=== PATIENT | male | born 1990 | race Two or more races ===

== ENCOUNTER → 2020-08-02 10:10 | Outpatient (BNVA) | payer OTHER, SELFPAY | PROVIDERS: PCP Physician Assistant; Visit Provider Internal Medicine | DX: F11.20 Opioid dependence, uncomplicated (principal) | CPT/HCPCS: 80305; 99211 ==

== ENCOUNTER 2020-08-10 15:10 | Outpatient (REF) | payer OTHER, SELFPAY ==
[2020-08-10 17:35] LABS: Free T4 (Free Thyroxine) 0.73 ng/dL (0.71-1.85); Thyroid Stimulating Hormone < 0.01 mIU/mL (0.32-4.0)
[2020-08-11 19:17] LABS: Triiodothyronine T3 Total 72 ng/dL (76-181)
== END 2020-08-10 15:11 | disposition home or self-care (01) ==
LOC: HO.LAB 15:10
PROVIDERS: Absent Provider Internal Medicine; PCP Physician Assistant; Visit Provider Internal Medicine
DX: E05.00 Thyrotoxicosis with diffuse goiter without thyrotoxic crisis or storm (principal); F11.99 Opioid use, unspecified with unspecified opioid-induced disorder
CPT/HCPCS: 80305; 84439; 84443; 84480; 99211

== ENCOUNTER → 2020-08-17 15:34 | Outpatient (BNVA) | payer OTHER, SELFPAY | PROVIDERS: Visit Provider Internal Medicine | DX: E05.00 Thyrotoxicosis with diffuse goiter without thyrotoxic crisis or storm (principal); E55.9 Vitamin D deficiency, unspecified | CPT/HCPCS: 80305; 99211 ==

== ENCOUNTER → 2020-08-24 10:49 | Outpatient (BNVA) | payer OTHER, SELFPAY | PROVIDERS: Visit Provider Internal Medicine | DX: F11.99 Opioid use, unspecified with unspecified opioid-induced disorder (principal) | CPT/HCPCS: 80305; 99211 ==

== ENCOUNTER → 2020-08-31 15:06 | Outpatient (BNVA) | payer OTHER, SELFPAY | PROVIDERS: Visit Provider Internal Medicine | DX: F11.20 Opioid dependence, uncomplicated (principal) | CPT/HCPCS: 80305; 99211 ==

== ENCOUNTER → 2020-09-09 15:30 | Outpatient (BNVA) | payer OTHER, SELFPAY | PROVIDERS: Visit Provider Internal Medicine | DX: F11.20 Opioid dependence, uncomplicated (principal) | CPT/HCPCS: 99211 ==

== ENCOUNTER → 2020-09-14 16:20 | Outpatient (BNVA) | payer OTHER, SELFPAY | PROVIDERS: Visit Provider Internal Medicine | DX: Z76.89 Persons encountering health services in other specified circumstances (principal) ==

== ENCOUNTER → 2020-09-28 15:44 | Outpatient (BNVA) | payer OTHER, SELFPAY | PROVIDERS: Visit Provider Internal Medicine | DX: Z13.89 Encounter for screening for other disorder (principal) | CPT/HCPCS: 99211 ==

== ENCOUNTER → 2020-10-12 15:32 | Outpatient (BNVA) | payer OTHER, SELFPAY | PROVIDERS: Visit Provider Internal Medicine | DX: Z76.89 Persons encountering health services in other specified circumstances (principal) ==

== ENCOUNTER 2020-10-27 15:45 | Outpatient (REF) | payer OTHER, SELFPAY ==
[2020-10-27 18:18] LABS: Free T4 (Free Thyroxine) 0.53 ng/dL (0.71-1.85); Thyroid Stimulating Hormone 9.86 uIU/mL (0.32-4.0)
[2020-10-28 07:26] LABS: Triiodothyronine T3 Total 60 ng/dL (76-181)
== END 2020-10-27 15:46 | disposition home or self-care (01) ==
LOC: HO.LAB 15:45
PROVIDERS: PCP Physician Assistant; Visit Provider Internal Medicine
DX: E05.00 Thyrotoxicosis with diffuse goiter without thyrotoxic crisis or storm (principal)
CPT/HCPCS: 84439; 84443; 84480

== ENCOUNTER → 2020-11-03 12:21 | Outpatient (BNVA) | payer OTHER, SELFPAY | PROVIDERS: PCP Physician Assistant; Referring Provider Physician Assistant; Visit Provider Internal Medicine | DX: Z76.89 Persons encountering health services in other specified circumstances (principal) ==

== ENCOUNTER → 2020-11-09 15:03 | Outpatient (BNVA) | payer OTHER, SELFPAY | PROVIDERS: Visit Provider Internal Medicine | DX: Z76.89 Persons encountering health services in other specified circumstances (principal) ==

== ENCOUNTER 2020-11-14 15:31 | Outpatient (REF) | payer OTHER, SELFPAY ==
[2020-11-14 17:31] LABS: Free T4 (Free Thyroxine) 0.55 ng/dL (0.71-1.85); Thyroid Stimulating Hormone 10.19 uIU/mL (0.32-4.0); Vitamin D 25-OH Total 16.3 ng/mL (>30)
[2020-11-15 08:52] LABS: Triiodothyronine T3 Total 83 ng/dL (76-181)
== END 2020-11-14 15:32 | disposition home or self-care (01) ==
LOC: HO.LAB 15:31
PROVIDERS: PCP Physician Assistant; Visit Provider Internal Medicine
DX: E05.00 Thyrotoxicosis with diffuse goiter without thyrotoxic crisis or storm (principal); E55.9 Vitamin D deficiency, unspecified
CPT/HCPCS: 36415; 82306; 84439; 84443; 84480

== ENCOUNTER → 2020-11-28 11:10 | Outpatient (BNVA) | payer OTHER, SELFPAY | PROVIDERS: PCP Physician Assistant; Visit Provider Internal Medicine | DX: Z51.81 Encounter for therapeutic drug level monitoring (principal) | CPT/HCPCS: 80305; 99211 ==

== ENCOUNTER → 2020-12-13 11:42 | Outpatient (BNVA) | payer OTHER, SELFPAY | PROVIDERS: PCP Physician Assistant; Visit Provider Internal Medicine | DX: Z51.81 Encounter for therapeutic drug level monitoring (principal) ==

== ENCOUNTER → 2020-12-27 13:31 | Outpatient (BNVA) | payer OTHER, SELFPAY | PROVIDERS: PCP Physician Assistant; Visit Provider Internal Medicine | DX: Z51.81 Encounter for therapeutic drug level monitoring (principal) | CPT/HCPCS: 80305; 99211 ==

== ENCOUNTER 2021-01-04 16:17 | Outpatient (REF) | payer OTHER, SELFPAY ==
[2021-01-04 17:43] LABS: Free T4 (Free Thyroxine) 0.93 ng/dL (0.71-1.85); Thyroid Stimulating Hormone 0.47 uIU/mL (0.32-4.0); Vitamin D 25-OH Total 13.7 ng/mL (>30)
[2021-01-05 09:16] LABS: Triiodothyronine T3 Total 113 ng/dL (76-181)
== END 2021-01-04 16:18 | disposition home or self-care (01) ==
LOC: HO.LAB 16:17
PROVIDERS: PCP Physician Assistant; Visit Provider Internal Medicine
DX: E05.00 Thyrotoxicosis with diffuse goiter without thyrotoxic crisis or storm (principal); E55.9 Vitamin D deficiency, unspecified
CPT/HCPCS: 36415; 82306; 84439; 84443; 84480

== ENCOUNTER → 2021-01-05 14:48 | Outpatient (BNVA) | payer OTHER, SELFPAY | PROVIDERS: PCP Physician Assistant; Visit Provider Internal Medicine ==

== ENCOUNTER → 2021-01-10 13:59 | Outpatient (BNVA) | payer OTHER, SELFPAY | PROVIDERS: PCP Physician Assistant; Visit Provider Internal Medicine | DX: Z51.81 Encounter for therapeutic drug level monitoring (principal) | CPT/HCPCS: 80305; 99211 ==

== ENCOUNTER → 2021-01-24 14:31 | Outpatient (BNVA) | payer OTHER, SELFPAY | PROVIDERS: PCP Physician Assistant; Visit Provider Internal Medicine | DX: Z51.81 Encounter for therapeutic drug level monitoring (principal); F11.99 Opioid use, unspecified with unspecified opioid-induced disorder | CPT/HCPCS: 80305; 99211 ==

== ENCOUNTER → 2021-01-25 13:52 | Outpatient (BNVA) | payer OTHER, SELFPAY | PROVIDERS: PCP Physician Assistant; Visit Provider Internal Medicine Cardiovascular Disease | DX: E05.00 Thyrotoxicosis with diffuse goiter without thyrotoxic crisis or storm (principal) | CPT/HCPCS: 93005; 99212 ==

== ENCOUNTER → 2021-02-08 11:11 | Outpatient (BNVA) | payer OTHER, SELFPAY | PROVIDERS: PCP Physician Assistant; Visit Provider Internal Medicine | DX: Z51.81 Encounter for therapeutic drug level monitoring (principal); F11.20 Opioid dependence, uncomplicated | CPT/HCPCS: 80305; 99211 ==

== ENCOUNTER → 2021-02-22 13:20 | Outpatient (BNVA) | payer OTHER, SELFPAY | PROVIDERS: Visit Provider Internal Medicine | DX: Z51.81 Encounter for therapeutic drug level monitoring (principal) | CPT/HCPCS: 80305; 99211 ==

== ENCOUNTER → 2021-03-09 13:24 | Outpatient (BNVA) | payer OTHER, SELFPAY | PROVIDERS: Visit Provider Internal Medicine | DX: Z51.81 Encounter for therapeutic drug level monitoring (principal); F11.90 Opioid use, unspecified, uncomplicated; F12.90 Cannabis use, unspecified, uncomplicated | CPT/HCPCS: 80305; 99211; 99212 ==

== ENCOUNTER → 2021-03-23 13:40 | Outpatient (BNVA) | payer OTHER, SELFPAY | PROVIDERS: Visit Provider Internal Medicine | DX: Z51.81 Encounter for therapeutic drug level monitoring (principal) | CPT/HCPCS: 80305; 99211 ==

== ENCOUNTER → 2021-04-04 14:18 | Outpatient (BNVA) | payer OTHER, SELFPAY | PROVIDERS: Visit Provider Internal Medicine | DX: Z51.81 Encounter for therapeutic drug level monitoring (principal); F11.99 Opioid use, unspecified with unspecified opioid-induced disorder ==

== ENCOUNTER → 2021-04-18 13:55 | Outpatient (BNVA) | payer OTHER, SELFPAY | PROVIDERS: PCP Physician Assistant | DX: Z51.81 Encounter for therapeutic drug level monitoring (principal) | CPT/HCPCS: 80305; 99211 ==

== ENCOUNTER → 2021-05-03 13:42 | Outpatient (BNVA) | payer OTHER, SELFPAY | PROVIDERS: PCP Physician Assistant | DX: Z51.81 Encounter for therapeutic drug level monitoring (principal); Z79.899 Other long term (current) drug therapy | CPT/HCPCS: 80305; 99211 ==

== ENCOUNTER → 2021-05-30 13:45 | Outpatient (BNVA) | payer OTHER, SELFPAY | PROVIDERS: Visit Provider Internal Medicine | DX: F11.99 Opioid use, unspecified with unspecified opioid-induced disorder (principal) | CPT/HCPCS: 80305; 99211 ==

== ENCOUNTER → 2021-06-13 13:12 | Outpatient (BNVA) | payer OTHER, SELFPAY | DX: Z51.81 Encounter for therapeutic drug level monitoring (principal) | CPT/HCPCS: 80305; 99211 ==

== ENCOUNTER → 2021-06-28 14:16 | Outpatient (BNVA) | payer OTHER, SELFPAY | PROVIDERS: Visit Provider Internal Medicine | DX: Z51.81 Encounter for therapeutic drug level monitoring (principal); F11.90 Opioid use, unspecified, uncomplicated | CPT/HCPCS: 80305; 99212 ==

== ENCOUNTER → 2021-07-11 11:20 | Outpatient (BNVA) | payer OTHER, SELFPAY | PROVIDERS: Visit Provider Internal Medicine | DX: Z51.81 Encounter for therapeutic drug level monitoring (principal); F11.90 Opioid use, unspecified, uncomplicated; F12.90 Cannabis use, unspecified, uncomplicated | CPT/HCPCS: 80305; 99212 ==

== ENCOUNTER → 2021-08-08 14:15 | Outpatient (BNVA) | payer OTHER, SELFPAY | PROVIDERS: Visit Provider Internal Medicine | DX: F11.90 Opioid use, unspecified, uncomplicated (principal) | CPT/HCPCS: 80305; 99212 ==

== ENCOUNTER → 2021-09-12 14:31 | Outpatient (BNVA) | payer OTHER, SELFPAY | PROVIDERS: Visit Provider Internal Medicine | DX: F11.99 Opioid use, unspecified with unspecified opioid-induced disorder (principal); E05.00 Thyrotoxicosis with diffuse goiter without thyrotoxic crisis or storm; E55.9 Vitamin D deficiency, unspecified; F12.90 Cannabis use, unspecified, uncomplicated; Z87.891 Personal history of nicotine dependence | CPT/HCPCS: 80305; 99212 ==

== ENCOUNTER → 2021-10-10 15:13 | Outpatient (BNVA) | payer OTHER, SELFPAY | PROVIDERS: Visit Provider Internal Medicine | DX: Z51.81 Encounter for therapeutic drug level monitoring (principal); F11.20 Opioid dependence, uncomplicated | CPT/HCPCS: 80305; 99212 ==

== ENCOUNTER → 2021-11-07 14:28 | Outpatient (BNVA) | payer OTHER, SELFPAY | PROVIDERS: Visit Provider Internal Medicine | DX: F11.20 Opioid dependence, uncomplicated (principal); Z51.81 Encounter for therapeutic drug level monitoring; Z79.899 Other long term (current) drug therapy | CPT/HCPCS: 99212 ==

== ENCOUNTER 2021-12-08 13:25 | Outpatient (REF) | payer OTHER, SELFPAY ==
[2021-12-08 15:40] LABS: Free T4 (Free Thyroxine) 1.57 ng/dL (0.71-1.85)
[2021-12-10 10:07] LABS: Triiodothyronine T3 Total 190 ng/dL (76-181)
== END 2021-12-08 13:26 | disposition home or self-care (01) ==
LOC: HO.LAB 13:25
PROVIDERS: Absent Provider Internal Medicine; PCP Physician Assistant; Visit Provider Internal Medicine
DX: E05.00 Thyrotoxicosis with diffuse goiter without thyrotoxic crisis or storm (principal); E55.9 Vitamin D deficiency, unspecified; F11.90 Opioid use, unspecified, uncomplicated; Z87.891 Personal history of nicotine dependence; Z51.81 Encounter for therapeutic drug level monitoring
CPT/HCPCS: 36415; 80305; 84439; 84480; 99212

== ENCOUNTER → 2021-12-11 11:03 | Outpatient (BNVA) | payer OTHER, SELFPAY | PROVIDERS: Visit Provider Internal Medicine | DX: E05.00 Thyrotoxicosis with diffuse goiter without thyrotoxic crisis or storm (principal); E55.9 Vitamin D deficiency, unspecified | CPT/HCPCS: 99212 ==

== ENCOUNTER 2021-12-15 16:16 | Outpatient (REF) | payer OTHER, SELFPAY ==
[2021-12-15 18:12] LABS: Free T4 (Free Thyroxine) 2.07 ng/dL (0.71-1.85); Thyroid Stimulating Hormone < 0.01 uIU/mL (0.32-4.0)
[2021-12-17 08:11] LABS: Triiodothyronine T3 Total 276 ng/dL (76-181)
[2021-12-19 18:30] LABS: Thyrotropin Receptor Antibody 3.54 IU/L (<=2.00)
[2021-12-20 15:51] LABS: Thyroid Stimulating Immunoglob <89 % baseline (<140)
== END 2021-12-15 16:17 | disposition home or self-care (01) ==
LOC: HO.LAB 16:16
PROVIDERS: PCP Physician Assistant; Visit Provider Internal Medicine
DX: E05.00 Thyrotoxicosis with diffuse goiter without thyrotoxic crisis or storm (principal); E55.9 Vitamin D deficiency, unspecified
CPT/HCPCS: 36415; 82306; 83520; 84439; 84443; 84445; 84480

== ENCOUNTER → 2022-01-12 14:41 | Outpatient (BNVA) | payer OTHER, SELFPAY | PROVIDERS: PCP Physician Assistant; Visit Provider Internal Medicine | DX: Z13.89 Encounter for screening for other disorder (principal) ==

== ENCOUNTER → 2022-02-07 15:44 | Outpatient (BNVA) | payer OTHER, SELFPAY | PROVIDERS: Visit Provider Internal Medicine | DX: F11.90 Opioid use, unspecified, uncomplicated (principal) | CPT/HCPCS: 80305; 99212 ==

== ENCOUNTER 2022-02-23 11:59 | Outpatient (REF) | payer OTHER, SELFPAY ==
[2022-02-23 13:23] LABS: Free T4 (Free Thyroxine) 1.29 ng/dL (0.71-1.85)
[2022-02-24 17:46] LABS: Triiodothyronine T3 Total 134 ng/dL (76-181)
[2022-02-26 12:47] LABS: Calcium (PTHI) 9.4 mg/dL (8.6-10.3); PTHI 71 pg/mL (16-77)
== END 2022-02-23 12:00 | disposition home or self-care (01) ==
LOC: HO.LAB 11:59
PROVIDERS: PCP Physician Assistant; Visit Provider Internal Medicine
DX: E05.00 Thyrotoxicosis with diffuse goiter without thyrotoxic crisis or storm (principal); E55.9 Vitamin D deficiency, unspecified
CPT/HCPCS: 36415; 83970; 84100; 84439; 84480

== ENCOUNTER → 2022-03-07 16:02 | Outpatient (BNVA) | payer OTHER, SELFPAY | PROVIDERS: Visit Provider Internal Medicine | DX: Z51.81 Encounter for therapeutic drug level monitoring (principal); F11.20 Opioid dependence, uncomplicated | CPT/HCPCS: 80305; 99212 ==

== ENCOUNTER 2022-03-12 16:17 | Outpatient (REF) | payer OTHER, SELFPAY ==
[2022-03-12 17:27] LABS: Free T4 (Free Thyroxine) 1.36 ng/dL (0.71-1.85); Thyroid Stimulating Hormone < 0.01 uIU/mL (0.32-4.0)
== END 2022-03-12 16:18 | disposition home or self-care (01) ==
LOC: HO.LAB 16:17
PROVIDERS: PCP Physician Assistant; Visit Provider Internal Medicine
DX: E05.00 Thyrotoxicosis with diffuse goiter without thyrotoxic crisis or storm (principal)
CPT/HCPCS: 36415; 84439; 84443

== ENCOUNTER → 2022-03-14 07:39 | Outpatient (BNVA) | payer OTHER, SELFPAY | PROVIDERS: PCP Physician Assistant; Visit Provider Internal Medicine | DX: E05.00 Thyrotoxicosis with diffuse goiter without thyrotoxic crisis or storm (principal) ==

== ENCOUNTER → 2022-04-06 15:54 | Outpatient (BNVA) | payer OTHER, SELFPAY | PROVIDERS: Visit Provider Internal Medicine | DX: F11.99 Opioid use, unspecified with unspecified opioid-induced disorder (principal) | CPT/HCPCS: 80305; 99212 ==

== ENCOUNTER 2022-04-27 12:23 | Outpatient (REF) | payer OTHER, SELFPAY ==
[2022-04-27 14:16] LABS: Free T4 (Free Thyroxine) 0.76 ng/dL (0.71-1.85); Thyroid Stimulating Hormone 0.78 uIU/mL (0.32-4.0)
[2022-04-29 03:27] LABS: Triiodothyronine T3 Total 89 ng/dL (76-181)
== END 2022-04-27 12:24 | disposition home or self-care (01) ==
LOC: HO.LAB 12:23
PROVIDERS: PCP Physician Assistant; Visit Provider Internal Medicine
DX: E05.00 Thyrotoxicosis with diffuse goiter without thyrotoxic crisis or storm (principal)
CPT/HCPCS: 36415; 84439; 84443; 84480

== ENCOUNTER → 2022-06-01 15:41 | Outpatient (BNVA) | payer OTHER, SELFPAY | PROVIDERS: PCP Physician Assistant; Visit Provider Internal Medicine | DX: F11.20 Opioid dependence, uncomplicated (principal); Z51.81 Encounter for therapeutic drug level monitoring; Z79.899 Other long term (current) drug therapy | CPT/HCPCS: 99212 ==

== ENCOUNTER → 2022-07-03 15:42 | Outpatient (BNVA) | payer OTHER, SELFPAY | PROVIDERS: PCP Physician Assistant; Visit Provider Internal Medicine | DX: F11.20 Opioid dependence, uncomplicated (principal); F14.90 Cocaine use, unspecified, uncomplicated | CPT/HCPCS: 99212 ==

== ENCOUNTER 2022-08-01 17:37 | Outpatient (REF) | payer OTHER, SELFPAY ==
[2022-08-01 18:03] LABS: Fentanyl, urine Not Detected (Not Detect)
== END 2022-08-01 17:38 | disposition home or self-care (01) ==
LOC: HO.LNP 17:37
PROVIDERS: Visit Provider Internal Medicine
DX: F11.20 Opioid dependence, uncomplicated (principal); Z51.81 Encounter for therapeutic drug level monitoring; Z79.899 Other long term (current) drug therapy
CPT/HCPCS: 80307; 99212

== ENCOUNTER → 2022-08-29 14:11 | Outpatient (BNVA) | payer OTHER, SELFPAY | PROVIDERS: PCP Physician Assistant; Visit Provider Internal Medicine | DX: F11.20 Opioid dependence, uncomplicated (principal); Z51.81 Encounter for therapeutic drug level monitoring; Z79.899 Other long term (current) drug therapy | CPT/HCPCS: 99212 ==

== ENCOUNTER 2022-09-11 07:28 | Outpatient (REF) | payer OTHER, SELFPAY ==
[2022-09-11 18:25] LABS: Free T4 (Free Thyroxine) < 0.40 ng/dL (0.71-1.85)
[2022-09-12 08:56] LABS: Triiodothyronine T3 Total 44 ng/dL (76-181)
== END 2022-09-11 07:29 | disposition home or self-care (01) ==
LOC: HO.LAB 07:28
PROVIDERS: PCP Physician Assistant; Visit Provider Internal Medicine
DX: E05.00 Thyrotoxicosis with diffuse goiter without thyrotoxic crisis or storm (principal)
CPT/HCPCS: 36415; 84439; 84480

== ENCOUNTER 2022-09-25 16:17 | Outpatient (REF) | payer OTHER, SELFPAY ==
[2022-09-25 18:13] LABS: Free T4 (Free Thyroxine) < 0.42 ng/dL (0.71-1.85); Thyroid Stimulating Hormone 32.02 uIU/mL (0.32-4.0)
[2022-09-27 07:23] LABS: Triiodothyronine T3 Total 74 ng/dL (76-181)
== END 2022-09-25 16:18 | disposition home or self-care (01) ==
LOC: HO.LAB 16:17
PROVIDERS: PCP Physician Assistant; Visit Provider Internal Medicine
DX: E05.00 Thyrotoxicosis with diffuse goiter without thyrotoxic crisis or storm (principal)
CPT/HCPCS: 36415; 84439; 84443; 84480

== ENCOUNTER 2022-10-03 16:20 | Outpatient (REF) | payer OTHER, SELFPAY ==
[2022-10-03 18:11] LABS: Albumin Level 4.8 g/dL (3.5-5.0); Free T4 (Free Thyroxine) 0.74 ng/dL (0.71-1.85); Thyroid Stimulating Hormone 8.39 uIU/mL (0.32-4.0); Vitamin D 25-OH Total 24.4 ng/mL (>30)
[2022-10-05 09:54] LABS: PTHI 57 pg/mL (16-77)
[2022-10-05 23:39] LABS: Triiodothyronine T3 Total 132 ng/dL (76-181)
== END 2022-10-03 16:21 | disposition home or self-care (01) ==
LOC: HO.LAB 16:20
PROVIDERS: PCP Physician Assistant; Visit Provider Internal Medicine
DX: E05.00 Thyrotoxicosis with diffuse goiter without thyrotoxic crisis or storm (principal); E55.9 Vitamin D deficiency, unspecified
CPT/HCPCS: 36415; 82040; 82306; 83970; 84439; 84443; 84480

== ENCOUNTER 2022-11-02 16:20 | Outpatient (REF) | payer OTHER, SELFPAY ==
[2022-11-02 18:07] LABS: Free T4 (Free Thyroxine) 1.09 ng/dL (0.71-1.85)
== END 2022-11-02 16:21 | disposition home or self-care (01) ==
LOC: HO.LAB 16:20
PROVIDERS: PCP Physician Assistant; Visit Provider Internal Medicine
DX: E05.00 Thyrotoxicosis with diffuse goiter without thyrotoxic crisis or storm (principal)
CPT/HCPCS: 36415; 84439

== ENCOUNTER → 2022-11-05 07:56 | Outpatient (BNVA) | payer OTHER, SELFPAY | PROVIDERS: PCP Physician Assistant; Visit Provider Internal Medicine | DX: E89.0 Postprocedural hypothyroidism (principal) | CPT/HCPCS: 99212 ==

== ENCOUNTER 2022-11-23 11:56 | Outpatient (REF) | payer OTHER, SELFPAY ==
[2022-11-23 14:18] LABS: Free T4 (Free Thyroxine) 1.39 ng/dL (0.71-1.85); Thyroid Stimulating Hormone 2.21 uIU/mL (0.32-4.0)
== END 2022-11-23 11:57 | disposition home or self-care (01) ==
LOC: HO.LAB 11:56
PROVIDERS: PCP Physician Assistant; Visit Provider Internal Medicine
DX: E89.0 Postprocedural hypothyroidism (principal); E05.00 Thyrotoxicosis with diffuse goiter without thyrotoxic crisis or storm
CPT/HCPCS: 36415; 84439; 84443

== ENCOUNTER 2023-02-01 16:17 | Outpatient (REF) | payer OTHER, SELFPAY ==
[2023-02-01 18:26] LABS: Free T4 (Free Thyroxine) 0.89 ng/dL (0.71-1.85)
== END 2023-02-01 16:18 | disposition home or self-care (01) ==
LOC: HO.LAB 16:17
PROVIDERS: PCP Physician Assistant; Visit Provider Internal Medicine
DX: E89.0 Postprocedural hypothyroidism (principal); E05.00 Thyrotoxicosis with diffuse goiter without thyrotoxic crisis or storm
CPT/HCPCS: 36415; 84439; 84443

== ENCOUNTER → 2023-02-06 07:37 | Outpatient (BNVA) | payer OTHER, SELFPAY | PROVIDERS: PCP Physician Assistant; Visit Provider Internal Medicine | DX: Z13.89 Encounter for screening for other disorder (principal) ==

== ENCOUNTER 2023-03-06 16:26 | Outpatient (REF) | payer OTHER, SELFPAY ==
[2023-03-06 19:05] LABS: Free T4 (Free Thyroxine) 1.36 ng/dL (0.71-1.85); Thyroid Stimulating Hormone 3.29 uIU/mL (0.32-4.0)
== END 2023-03-06 16:27 | disposition home or self-care (01) ==
LOC: HO.LAB 16:26
PROVIDERS: PCP Physician Assistant; Visit Provider Internal Medicine
DX: E89.0 Postprocedural hypothyroidism (principal)
CPT/HCPCS: 36415; 84439; 84443

== ENCOUNTER 2023-05-14 16:20 | Outpatient (REF) | payer OTHER, SELFPAY | END 2023-05-14 16:21 | disposition home or self-care (01) | LOC: HO.LAB 16:20 | PROVIDERS: PCP Physician Assistant; Visit Provider Internal Medicine | DX: E89.0 Postprocedural hypothyroidism (principal) | CPT/HCPCS: 36415; 84439; 84443 ==

== ENCOUNTER 2023-05-15 07:36 | Outpatient (AMB) | payer OTHER, SELFPAY ==
--- NOTE | 2023-05-15 07:36 | MHC.OFFVIS ---
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 He had routine labs checked 08/14/19 which revealed a suppressed TSH of <0.01. He also had a Calcium level checked which was 10.5. No labs were repeated. He was subsequently referred to Endocrinology. We repeated labs which confirmed Hyperthyroidism, with positive TPO and TSI antibodies. He had a thyroid US which revealed no evidence of thyroid nodules. He had a Thyroid Uptake and Scan 12/23/2019 which revealed markedly increased uptake of 73% at 4 hours, with homogenous distribution consistent with Grave's disease. He was started on Methimazole, but initially was noncompliant with this. He began using this regularly in April 2020. He was using 20 mg PO daily, but was successfully tapered off Methimazole in Oct 2020. He remained in remission for approximately 1 year, but then hyperthyroidism recurred. He was resumed on Methimazole 10 mg PO daily. He was also referred to Dr. Gomez at that time. He underwent a total thyroidectomy 10/09/2022 and was started on levothyroxine postoperatively. He remains on levothyroxine 125 mcg PO daily and takes this correctly. TSH is at goal. Official surgical path was benign. He reports feeling well today and has no complaints. He reports good compliance with his levothyroxine. 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 Official surgical path benign. TSH is at goal on levothyroxine 125 mcg PO daily. Will continue on this dose. He will continue to follow up with his PCP for management of his postsurgical hypothyroidism at this time. I recommend his PCP check his TSH q 6 months, and I also advised Tarah to notify his PCP if he begins experiencing any symptoms of hypo or hyperthyroidism so repeat labs can be checked. All of his questions were answered. He is in agreement with this plan of care. I spent 20 minutes in reviewing the record, seeing the patient and documenting in the medical record, including 5 minutes on the phone with the Patient. Telehealth Telehealth Location of provider rendering services: practice address Location of patient: address on file Patient Identification confirmed using: Name, : Yes Telehealth method: voice only Patient verbally consented to treatment: Yes Patient verbally consented to billing insurance company: Yes Patient informed of any privacy concerns related to visit: Yes Coding Level of Care Code Tele Est Pt Level 3 (30804) Diagnoses Postoperative hypothyroidism E89.0
== END 2023-05-15 12:48 | disposition home or self-care (01) ==
LOC: HO.ENCR 07:36
PROVIDERS: PCP Physician Assistant; Visit Provider Internal Medicine
DX: E89.0 Postprocedural hypothyroidism (principal)
CPT/HCPCS: 99213

== ENCOUNTER → 2023-05-15 07:36 | Outpatient (BNVA) | payer OTHER, SELFPAY | PROVIDERS: PCP Physician Assistant; Visit Provider Internal Medicine ==

== ENCOUNTER 2024-01-15 08:02 | Outpatient (AMB) | payer OTHER, SELFPAY ==
[2024-01-15 08:08] VITALS: BP 118/74; BMI 25.8
--- NOTE | 2024-01-15 08:08 | A.OFFPC_ITS ---
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 Accompanied by: Self / Same As Patient Allergies No Known Allergies Allergy (Verified 01/15/24 08:19) Medication List - Last Reconciled 01/15/24 by Dean Gamble PA-C cholecalciferol (vitamin D3) 50 mcg PO DAILY 30 days levothyroxine 125 mcg PO DAILY Tobacco use date assessed: 01/15/24 Dental Screening Dental Screen Date: 01/15/24 Did you have a dental visit in the last 12 months?: No Did you have a dental problem in the last 6 months where you did not have access to dental care?: No Was dental information given to patient?: Patient has dentist HPI Re-establish Care, hypothyroidism medications HPI Details Patient is a 33-year-old male here today to reestablish care. Patient has a past medical history significant for postoperative hypothyroidism, Graves disease, vitamin-D deficiency, history of opiate use disorder.. . Hypothyroidism: Was followed by Endocrinology due to his Graves and postoperative hypo thyroidism (thyroidectomy 10/2022). He continues on levothyroxine 125 mcg. He reports he has been feeling much better since stabilizing his thyroid.. His Weight has been stable and his sleep has been okay. Has been awhile since taking his TSH. .. Opiate dependence: Has been sober over the last 4 years. Was originally on Suboxone early on in his sobriety. Has been able to wean off Suboxone and continues to seize the over. 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 Laboratory Tests 03/06/23 05/14/23 16:36 16:26 TSH 3.29 3.20 [facility] Medical History Asthma Depression Graves disease Opioid use disorder Postoperative hypothyroidism Vitamin D deficiency Surgical History Hx of thyroidectomy History of surgery on wrist Family History Mother Graves disease HTN (hypertension) Social History (Updated 01/15/24 @ 08:26 by Dean Gamble PA-C) Housing: House Alcohol intake: current Alcohol intake frequency: a few times a week Alcohol type: beer Patient Tobacco Use Status: Former Tobacco user Tobacco use type: Smokeless Tobacco Cigarettes Per Day: 2 e-Cigarette/Vaping Use: Currently Using Second Hand Smoke Exposure: No Substance Use Type: Marijuana service: No Current occupational status: employed Current occupation: [employer] Current occupational exposures/hazards: No Cognitive needs: No Hearing needs: No Vision needs: No Questionnaire PHQ-9 Over the last 2 weeks, how often have you been bothered by any of the following problems? 1. Little interest or pleasure in doing things: not at all 2. Feeling down, depressed, or hopeless: not at all 3. Trouble falling or staying asleep, or sleeping too much: not at all 4. Feeling tired or having little energy: not at all 5. Poor appetite or overeating: not at all 6. Feeling bad about yourself - or that you are a failure or have let yourself or your family down: not at all 7. Trouble concentrating on things, such as reading the newspaper or watching television: not at all 8. Moving or speaking so slowly that other people could have noticed. Or the opposite - being so fidgety or restless that you have been moving around a lot more than usual: not at all 9. Thoughts that you would be better off or of hurting yourself in some way: not at all Total score: 0 Depression Screening Interpretation: Negative Depression Screening Done: Yes 69112 - PHQ-9 Billing: Yes Source: Developed by Drs. Waldemar Xiong, Galilea Prakash, Keshawn Ray and colleagues, with an educational caitlin from [employer]. Thrive Questionnaire Date Thrive assessed: 01/15/24 I am a: Patient What is your living situation today?: I have a steady place to live Within the past 12 months, did the food you bought not last and you didn't have the money to get more?: Never true Within the past 12 months, did you worry whether your food would run out before you got money to buy more?: Never true Do you have trouble paying for medicines?: No Do you have trouble getting transportation to medical appointments?: No Do you have trouble paying your heating and electricity bill?: No Do you have trouble taking care of your child, family member or friend?: No Do you have trouble with day-to-day activities such as bathing, preparing meals, shopping, managing finances, etc.?: No Are you currently unemployed and looking for a job?: No Are you interested in more education?: No Please select the resources that you would like help with: None Currently or been in a relationship where the following occur: no concerns reported THRIVE Score: 0 AUDIT C Alcohol Use Questionnaire (AUDIT-C) 1. How often do you have a drink containing alcohol?: 2-3 times a week 2. How many drinks containing alcohol do you have on a typical day when you are drinking?: 1 or 2 3. How often do you have six or more drinks on one occasion?: Never Total Score: 3 LEANNA-7 AMB Questionnaire LEANNA-7 Date LEANNA - 7 assessed: 01/15/24 Feeling nervous, anxious, or on edge: 0 = Not at all Not being able to stop or control worryin = Not at all Worrying too much about different things: 0 = Not at all Trouble relaxin = Not at all Being so restless that it is hard to sit still: 0 = Not at all Becoming easily annoyed or irritable: 0 = Not at all Feeling afraid as if something awful might happen: 0 = Not at all Total LEANNA-7 score (0-4 normal; 5-9 mild; 10-14 moderate; 15-21 severe): 0 Source: Developed by Drs. Waldemar Xiong, Galilea Prakash, Keshawn Ray and colleagues, with an educational caitlin from [employer]. Review of Systems Const Denies headache(s) Eyes Denies loss of vision ENT Denies vertigo, Denies dizziness, Denies headache(s) and Denies sore throat Card Denies chest pain, Denies leg edema and Denies lightheadedness Resp Denies cough, Denies hemoptysis and Denies wheezing GI Denies abdominal pain, Denies melena, Denies constipation, Denies diarrhea and Denies vomiting Denies dysuria, Denies urinary frequency and Denies urinary urgency Musc Denies arthralgias, Denies joint swelling, Denies numbness and Denies tingling Neuro Denies Abnormal speech present, Denies behavioral changes, Denies vertigo, Denies dizziness, Denies headache(s), Denies loss of vision, Denies memory loss, Denies numbness and Denies tingling Psych Denies anxiety, Denies behavioral changes, Denies depression, Denies memory loss and Denies panic attacks Sincere/Lymph Denies easy bleeding and Denies easy bruising Aller/Immun Denies wheezing Physical exam (Primary Care) Vital Signs: Last Vital Signs BP 118/74 01/15/24 08:08 BMI result Body Mass Index 25.8 Tobacco/Smoking Status: Tobacco use Status Tobacco use date assessed 01/15/24 01/15/24 08:13 Patient Tobacco Use Status Former Tobacco user 01/15/24 08:13 e-Cigarette/Vaping Use Currently Using 01/15/24 08:13 Are you ready to quit: No Tobacco cessation counseling provided: Yes Relapse Prevention: discussed the importance of a supportive environment, discussed negative mood or depression after quitting, weight gain after smoking is common and discussed dietary, exercise and/or lifestyle changes Number of minutes spent counselin CPT code: 92768 - 4-10 Minutes PHQ-9: PHQ-9 Score PHQ-9: Total score 0 01/15/24 08:13 Depression Screening Interpretation: Negative Thrive Assessment: Date of Thrive Assessment Date Thrive assessed 01/15/24 01/15/24 08:13 Currently or been in a relationship where the following occur: no concerns reported Const General: healthy appearing, no acute distress, alert and awake Nutritional Appearance: well nourished Orientation/consciousness: oriented to person, oriented to place and oriented to time HENWV Ears: TM's normal bilaterally General nose exam: Normal nasal mucous membranes and turbinates present Eyes Conjunctivae: conjunctivae normal Sclerae: sclerae normal Pupils: Equal, round and reactive pupils present Neck Neck: Yes no lymphadenopathy and Yes no JVD Thyroid: Thyroid normal Carotids: no bruits Resp Effort & Inspection: normal respiratory effort and not tachypneic Auscultation: no crackles, no rales, no rhonchi and no wheezes Cardio Rate: regular rate Rhythm: regular rhythm Heart sounds: no murmurs and normal S1 and S2 GI Palpation (GI): Soft to palpation, nontender, no hepatomegaly and no splenomegaly Auscultation: normal bowel sounds Skin General skin exam: no rashes or lesions noted and dry skin Neuro General: oriented to person, oriented to place and oriented to time Cranial nerves: Yes Equal, round and reactive pupils present Speech: No Abnormal speech present Gait exam (Neuro): Normal gait present Motor exam (neuro): no tremor noted Extrem Right upper extremity: full ROM Left upper extremity: full ROM Right lower extremity: full ROM; no edema Left lower extremity: full ROM; no edema Psych Mental Status: mental status grossly normal Speech and movement: Normal speech and movement present Affect: normal affect Attitude: cooperative Thought process: Normal thought process present Assessment and Plan Assessment & Plan (1) Postoperative hypothyroidism: Code(s): E89.0 - Postprocedural hypothyroidism Plan: Patient is status post total thyroidectomy in 2022. Was followed by Endocrinology and TSH has stabilized. Continue to follow TSH to assure normal. Continues on levothyroxine 125 mcg for (2) Vitamin D deficiency: Code(s): E55.9 - Vitamin D deficiency, unspecified Plan: Continues on vitamin D3 supplementation. (3) Graves disease: Code(s): E05.00 - Thyrotoxicosis with diffuse goiter without thyrotoxic crisis or storm Plan: Has history of Graves disease. Did have a total thyroidectomy. Continues on levothyroxine 125 mcg per (4) Opioid use disorder: Comment: He is doing well but not doing counseling he says as his schedule wasnt fitting His life is much better and he has job He has not used opioids or alcohol however He feels well Code(s): F11.99 - Opioid use, unspecified with unspecified opioid-induced disorder Plan: Has been sober now for nearly 4 years from opiates. Was on Suboxone early on in his sobriety though has been able to wean off. He continues to stay sober on his own (5) Smokeless tobacco use: Code(s): Z72.0 - Tobacco use Plan: Reports over the last year has been using smokeless tobacco and does understand it has not good for him. He will try to wean and get off the smokeless tobacco Coding Level of Care Code Est Pt Level 4 (44765) Diagnoses Postoperative hypothyroidism E89.0 Vitamin D deficiency E55.9 Graves disease E05.00 Opioid use disorder F11.99 Smokeless tobacco use Z72.0 Additional Codes Vital Signs *Quality* - CPT code: 23704 - 4-10 Minutes ([id number])
== END 2024-01-15 08:43 | disposition home or self-care (01) ==
PROVIDERS: PCP Physician Assistant; Visit Provider Physician Assistant
DX: E89.0 Postprocedural hypothyroidism (principal); F11.99 Opioid use, unspecified with unspecified opioid-induced disorder; E55.9 Vitamin D deficiency, unspecified; E05.00 Thyrotoxicosis with diffuse goiter without thyrotoxic crisis or storm; Z72.0 Tobacco use
CPT/HCPCS: 99214

== ENCOUNTER 2024-05-26 09:52 | Outpatient (AMB) | payer OTHER, SELFPAY ==
--- NOTE | 2024-05-26 09:53 | A.OFFPC_ITS ---
Vital Signs 05/26/24 10:04 Height 5 ft 7 in Weight 167 lb BMI 26.2 BP 102/58 L Blood Pressure Location Lt brachial Position Sitting Pulse 72 Pulse Source Pulse Oximeter Pulse Oximetry (%) 96 Oxygen Delivery Method Room Air Intake Visit Reasons: Annual Exam Intake Note: Patient is here today for a physical. Director Of Services Required: No Accompanied by: Self / Same As Patient Allergies No Known Allergies Allergy (Verified 05/26/24 10:10) Medication List - Last Reconciled 05/26/24 by Dean Gamble PA-C cholecalciferol (vitamin D3) 50 mcg PO DAILY 30 days levothyroxine 125 mcg PO DAILY Tobacco use date assessed: 01/15/24 Dental Screening Dental Screen Date: 01/15/24 HPI Annual Exam HPI Details Patient is a 34-year-old male here today for routine annual physical. Patient has a past medical history significant for postoperative hypothyroidism, Graves disease, vitamin-D deficiency, history of opiate use disorder.. . Hypothyroidism: Patient has Graves and postoperative hypo thyroidism (thyroidectomy 10/2022). He continues on levothyroxine 125 mcg. He reports he has been feeling much better since stabilizing his thyroid.. His Weight has been stable and his sleep has been okay. Will recheck TSH to ensure stable.. .. Opiate dependence: Has been sober over the last 4 years. Was originally on Suboxone early on in his sobriety. Has been able to wean off Suboxone and co ntinues to seize the over. 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 Vaccines: Up-to-date with tetanus, COVID vaccines. Will consider getting flu vaccine this fall Laboratory Tests 02/01/23 03/06/23 05/14/23 16:28 16:36 16:26 TSH 10.00 H 3.29 3.20 PFSH Medical History Postoperative hypothyroidism Opioid use disorder Depression Asthma Vitamin D deficiency Graves disease Surgical History Hx of thyroidectomy History of surgery on wrist Family History Mother Graves disease HTN (hypertension) Social History (Updated 05/26/24 @ 10:14 by Dean Gamble PA-C) Housing: House Alcohol intake: current Alcohol intake frequency: a few times a week Alcohol type: beer Patient Tobacco Use Status: Former Tobacco user Tobacco use type: Smokeless Tobacco Cigarettes Per Day: 2 e-Cigarette/Vaping Use: Currently Using Second Hand Smoke Exposure: No Substance Use Type: Marijuana service: No Current occupational status: employed Current occupation: [employer] Current occupational exposures/hazards: No Cognitive needs: No Hearing needs: No Vision needs: No Questionnaire Thrive Questionnaire Date Thrive assessed: 01/15/24 LEANNA-7 AMB Questionnaire LEANNA-7 Date LEANNA - 7 assessed: 01/15/24 Source: Developed by Drs. Waldemar Xiong, Galilea Prakash, Keshawn Ray and colleagues, with an educational caitlin from [employer]. Review of Systems Const Denies body aches, Denies chills, Denies excessive sweating, Denies fatigue, Denies fever(s) and Denies headache(s) Eyes Denies blurry vision ENT Denies dysphagia, Denies vertigo, Denies dizziness, Denies headache(s), Denies hearing loss and Denies tinnitus Card Denies chest pain, Denies chest pain with activity, Denies syncope, Denies irregular heart rhythm and Denies dyspnea Resp Denies chest congestion, Denies cough, Denies hemoptysis, Denies dyspnea and Denies wheezing GI Denies abdominal pain, Denies melena, Denies hematochezia, Denies coffee ground emesis, Denies dysphagia, Denies diarrhea, Denies nausea and Denies vomiting Denies difficulty urinating, Denies dysuria, Denies urinary frequency, Denies urinary hesitancy and Denies urinary urgency Musc Denies arthralgias, Denies limited range of motion, Denies muscle cramps and Denies muscle weakness Skin/Breast Denies rash and Denies skin ulcer Neuro Denies Abnormal speech present, Denies confusion, Denies vertigo, Denies dizziness, Denies syncope, Denies headache(s), Denies memory loss and Denies seizure-like activity Psych Denies anxiety, Denies confusion, Denies depression, Denies memory loss, Denies panic attacks and Denies paranoia Endo Denies excessive sweating, Denies fatigue, Denies flushing, Denies polydipsia and Denies polyuria Aller/Immun Denies wheezing Physical exam (Primary Care) Vital Signs: Last Vital Signs Pulse 72 05/26/24 10:04 BP 102/58 L 05/26/24 10:04 Pulse Ox 96 05/26/24 10:04 Oxygen Delivery Method Room Air 05/26/24 10:04 BMI result Body Mass Index 26.2 Tobacco/Smoking Status: Tobacco use Status Tobacco use date assessed 01/15/24 05/26/24 09:54 Patient Tobacco Use Status Former Tobacco user 05/26/24 09:54 Tobacco use type Smokeless Tobacco 05/26/24 09:54 e-Cigarette/Vaping Use Currently Using 05/26/24 09:54 Are you ready to quit: No Tobacco cessation counseling provided: Yes Items discussed: Nicotine replacement Relapse Prevention: discussed the importance of a supportive environment, discussed negative mood or depression after quitting, weight gain after smoking is common and discussed dietary, exercise and/or lifestyle changes Number of minutes spent counselin CPT code: 17052 - 4-10 Minutes Thrive Assessment: Date of Thrive Assessment Date Thrive assessed 01/15/24 05/26/24 09:54 Const General: cooperative, comfortable, no acute distress, alert and awake; No confusion Orientation/consciousness: oriented to person, oriented to place, patient oriented x3 and No confusion HENMT Head: Yes normocephalic Ears: external ears normal and TM's normal bilaterally Face and sinus: No sinus tenderness Mouth: Normal oral and palatal mucosa present and tongue normal Teeth and gingiva: dentition normal and gingiva normal Throat: Yes posterior oropharynx normal, Yes tonsils normal and Yes uvula midline Eyes Conjunctivae: conjunctivae normal Sclerae: sclerae normal Pupils: Equal, round and reactive pupils present EOM: EOMs intact bilaterally Direct Ophthalmoscopy: No no photophobia Neck Neck: Yes no lymphadenopathy, No tender and Yes no JVD Thyroid: Thyroid normal Carotids: no bruits Chest Chest palpation & inspection: no tenderness Resp Effort & Inspection: normal respiratory effort, no audible wheezes, not labored and no stridor Auscultation: no crackles, no rales, no rhonchi and no wheezes Cardio Jugular venous distension: no JVD Rate: regular rate, not bradycardic and not tachycardic Rhythm: regular rhythm Bruits: no carotid bruits Peripheral pulses: Peripheral pulses 2+ throughout GI Inspection: Yes normal to inspection, No abdominal wall ecchymosis and No visible herniation Palpation (GI): Soft to palpation, nontender, no guarding, not rigid and No hepatosplenomegaly present Auscultation: normoactive bowel sounds General: Yes no CVA tenderness Back/Spine/Pelvis Back: no CVA tenderness and No back tenderness Cervical Spine: cervical ROM normal Thoracic/Lumbar Spine: thoracic and lumbar spine normal to inspection, straight leg raise negative bilaterally, No thoraco-lumbar ROM limited and No lumbar spinal tenderness Skin Lesions: no lesions Rashes: no rashes Wounds: no wounds Neuro General: oriented to person, oriented to place, patient oriented x3, CN's II-XI intact bilaterally and No confusion Cranial nerves: Yes Equal, round and reactive pupils present and Yes Normal accommodation reflex present Cognition (Neuro): normal cognition Speech: No Abnormal speech present Gait exam (Neuro): Normal gait present Motor exam (neuro): 5/5 motor strength present throughout Extrem Right upper extremity: full ROM; no cyanosis Left upper extremity: full ROM; no cyanosis Right lower extremity: no edema Left lower extremity: no edema Psych Appearance: grossly normal Mental Status: mental status grossly normal Affect: normal affect Attitude: cooperative Thought process: Normal thought process present Assessment and Plan Assessment & Plan (1) Annual physical exam: Code(s): Z00.00 - Encounter for general adult medical examination without abnormal findings (2) Postoperative hypothyroidism: Code(s): E89.0 - Postprocedural hypothyroidism Plan: Patient is status post total thyroidectomy in 2022. Was followed by Endocrinology and TSH has stabilized. Continue to follow TSH to assure normal. Continues on levothyroxine 125 mcg for (3) Vitamin D deficiency: Code(s): E55.9 - Vitamin D deficiency, unspecified Plan: Continues on vitamin D3 supplementation. (4) Opioid use disorder: Comment: Sober since 2019 Code(s): F11.99 - Opioid use, unspecified with unspecified opioid-induced disorder Plan: Has been sober now for nearly 4 years from opiates. Was on Suboxone early on in his sobriety though has been able to wean off. He continues to stay sober on his own (5) Smokeless tobacco use: Code(s): Z72.0 - Tobacco use Plan: Reports over the last year has been using smokeless tobacco and does understand it has not good for him. He will try to wean and get off the smokeless tobacco Orders: Orders TSH reflex Free T4 6 Months E89.0 - Postprocedural hypothyroidism Basic Metabolic Panel 6 Months E89.0 - Postprocedural hypothyroidism Coding Level of Care Code Est Pt Prev Care 18-39y([id number]) Diagnoses Annual physical exam Z00.00 Postoperative hypothyroidism E89.0 Vitamin D deficiency E55.9 Opioid use disorder F11.99 Smokeless tobacco use Z72.0 Additional Codes Vital Signs *Quality* - CPT code: 64810 - 4-10 Minutes ([id number])
[2024-05-26 10:04] VITALS: BP 102/58; PULSE 72; O2SAT 96; BMI 26.2
== END 2024-05-26 10:24 | disposition home or self-care (01) ==
PROVIDERS: PCP Physician Assistant; Visit Provider Physician Assistant
DX: Z00.00 Encounter for general adult medical examination without abnormal findings (principal); E89.0 Postprocedural hypothyroidism; E55.9 Vitamin D deficiency, unspecified; F11.99 Opioid use, unspecified with unspecified opioid-induced disorder; Z72.0 Tobacco use
CPT/HCPCS: 99395; 99406

== ENCOUNTER 2024-11-20 13:39 | Outpatient (REF) | payer OTHER, SELFPAY ==
[2024-11-20 15:07] LABS: Anion Gap 11 (12-20); Blood Urea Nitrogen 11 mg/dL (9-16); Calcium 8.6 mg/dL (8.4-10.2); Carbon Dioxide 25 mmol/L (22-29); Chloride 107 mmol/L (96-108); Estimated Glomerular Filt Rate > 60; Glucose Random 81 mg/dL (60-115); Potassium 3.9 mmol/L (3.3-5.1); Sodium 139 mmol/L (135-145)
[2024-11-20 15:30] LABS: TSH reflex Free T4 2.99 uIU/mL (0.32-4.0)
== END 2024-11-20 13:40 | disposition home or self-care (01) ==
LOC: HO.LAB 13:39
PROVIDERS: PCP Physician Assistant; Visit Provider Physician Assistant
DX: E89.0 Postprocedural hypothyroidism (principal)
CPT/HCPCS: 36415; 80048; 84443

== ENCOUNTER 2024-12-24 14:17 | Outpatient (AMB) | payer OTHER, SELFPAY ==
[2024-12-24 14:19] VITALS: BP 118/72; PULSE 70; TEMP 36.3; O2SAT 96; BMI 27.9
--- NOTE | 2024-12-24 14:19 | A.OFFPC_ITS ---
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: No Accompanied by: Self / Same As Patient Allergies No Known Allergies Allergy (Verified 12/24/24 14:30) Medication List - Last Reconciled 12/24/24 by Dean Gamble PA-C cholecalciferol (vitamin D3) 50 mcg PO DAILY 30 days levothyroxine 125 mcg PO DAILY Tobacco use date assessed: 12/24/24 Dental Screening Dental Screen Date: 12/24/24 Did you have a dental visit in the last 12 months?: Yes Did you have a dental problem in the last 6 months where you did not have access to dental care?: No Was dental information given to patient?: Patient has dentist HPI 6 Month F/U HPI Details Patient is a 34-year-old male here today for routine annual physical. Patient has a past medical history significant for postoperative hypothyroidism, Graves disease, vitamin-D deficiency, history of opiate use disorder.. . Hypothyroidism: Patient has Graves and postoperative hypo thyroidism (thyroidectomy 10/2022). He continues on levothyroxine 125 mcg. He reports he has been feeling much better since stabilizing his thyroid.. He noted some weight gain since last office visit. He attributes this to dietary indiscretion over the the holidays .. Opiate dependence: Has been sober over the last 5 years. Was originally on Suboxone early on in his sobriety. Has been able to wean off Suboxone and continues to seize the over. 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 [facility] Medical History Postoperative hypothyroidism Opioid use disorder Depression Asthma Vitamin D deficiency Graves disease Surgical History Hx of thyroidectomy History of surgery on wrist Family History Mother Graves disease HTN (hypertension) Social History Housing: House Alcohol intake: current Alcohol intake frequency: a few times a week Alcohol type: beer Patient Tobacco Use Status: Former Tobacco user Tobacco use type: Smokeless Tobacco Cigarettes Per Day: 2 e-Cigarette/Vaping Use: Currently Using Second Hand Smoke Exposure: No Substance Use Type: Marijuana service: No Current occupational status: employed Current occupation: [employer] Current occupational exposures/hazards: No Cognitive needs: No Hearing needs: No Vision needs: No Questionnaire PHQ-9 Over the last 2 weeks, how often have you been bothered by any of the following problems? 1. Little interest or pleasure in doing things: not at all 2. Feeling down, depressed, or hopeless: not at all 3. Trouble falling or staying asleep, or sleeping too much: not at all 4. Feeling tired or having little energy: not at all 5. Poor appetite or overeating: not at all 6. Feeling bad about yourself - or that you are a failure or have let yourself or your family down: not at all 7. Trouble concentrating on things, such as reading the newspaper or watching television: not at all 8. Moving or speaking so slowly that other people could have noticed. Or the opposite - being so fidgety or restless that you have been moving around a lot more than usual: not at all 9. Thoughts that you would be better off or of hurting yourself in some way: not at all Total score: 0 Depression Screening Interpretation: Negative Depression Screening Done: Yes 67168 - PHQ-9 Billing: Yes Source: Developed by Drs. Waldemar Xiong, Galilea Prakash, Keshawn Ray and colleagues, with an educational caitlin from [employer]. Thrive Questionnaire Date Thrive assessed: 12/24/24 I am a: Patient What is your living situation today?: I have a steady place to live Within the past 12 months, did the food you bought not last and you didn't have the money to get more?: Never true Within the past 12 months, did you worry whether your food would run out before you got money to buy more?: Never true Do you have trouble paying for medicines?: No Do you have trouble getting transportation to medical appointments?: No Do you have trouble paying your heating and electricity bill?: No Do you have trouble taking care of your child, family member or friend?: No Do you have trouble with day-to-day activities such as bathing, preparing meals, shopping, managing finances, etc.?: No Are you currently unemployed and looking for a job?: No Are you interested in more education?: No Please select the resources that you would like help with: None Currently or been in a relationship where the following occur: No concerns reported THRIVE Score: 0 AUDIT C Alcohol Use Questionnaire (AUDIT-C) 1. How often do you have a drink containing alcohol?: 2-4 times a month 2. How many drinks containing alcohol do you have on a typical day when you are drinking?: 5 or 6 3. How often do you have six or more drinks on one occasion?: Weekly Total Score: 7 LEANNA-7 AMB Questionnaire LEANNA-7 Date LEANNA - 7 assessed: 12/24/24 Feeling nervous, anxious, or on edge: 0 = Not at all Not being able to stop or control worryin = Not at all Worrying too much about different things: 0 = Not at all Trouble relaxin = Not at all Being so restless that it is hard to sit still: 0 = Not at all Becoming easily annoyed or irritable: 0 = Not at all Feeling afraid as if something awful might happen: 0 = Not at all Total LEANNA-7 score (0-4 normal; 5-9 mild; 10-14 moderate; 15-21 severe): 0 Source: Developed by Drs. Waldemar Xiong, Galilea Prakash, Keshawn Ray and colleagues, with an educational caitlin from [employer]. LEANNA-7 Assessment Billing LEANNA-7 Assessment Tool: LEANNA-7 Assessment 94012 Review of Systems Const Denies headache(s) Eyes Denies loss of vision ENT Denies vertigo, Denies dizziness, Denies headache(s) and Denies sore throat Card Denies chest pain, Denies leg edema and Denies lightheadedness Resp Denies cough, Denies hemoptysis and Denies wheezing GI Denies abdominal pain, Denies melena, Denies constipation, Denies diarrhea and Denies vomiting Denies dysuria, Denies urinary frequency and Denies urinary urgency Musc Denies arthralgias, Denies joint swelling, Denies numbness and Denies tingling Neuro Denies Abnormal speech present, Denies behavioral changes, Denies vertigo, Denies dizziness, Denies headache(s), Denies loss of vision, Denies memory loss, Denies numbness and Denies tingling Psych Denies anxiety, Denies behavioral changes, Denies depression, Denies memory loss and Denies panic attacks Sincere/Lymph Denies easy bleeding and Denies easy bruising Aller/Immun Denies wheezing Physical exam (Primary Care) Vital Signs: Last Vital Signs Temp 97.3 F 12/24/24 14:19 Pulse 70 12/24/24 14:19 BP 118/72 12/24/24 14:19 Pulse Ox 96 12/24/24 14:19 Oxygen Delivery Method Room Air 12/24/24 14:19 BMI result Body Mass Index 27.9 Tobacco/Smoking Status: Tobacco use Status Tobacco use date assessed 12/24/24 12/24/24 14:27 Patient Tobacco Use Status Former Tobacco user 12/24/24 14:19 Tobacco use type Smokeless Tobacco 12/24/24 14:19 e-Cigarette/Vaping Use Currently Using 12/24/24 14:19 PHQ-9: PHQ-9 Score PHQ-9: Total score 0 12/24/24 14:27 Depression Screening Interpretation: Negative Thrive Assessment: Date of Thrive Assessment Date Thrive assessed 12/24/24 12/24/24 14:27 Currently or been in a relationship where the following occur: No concerns reported Const General: healthy appearing, no acute distress, alert and awake Nutritional Appearance: well nourished Orientation/consciousness: oriented to person, oriented to place and oriented to time [facility] Ears: TM's normal bilaterally General nose exam: Normal nasal mucous membranes and turbinates present Eyes Conjunctivae: conjunctivae normal Sclerae: sclerae normal Pupils: Equal, round and reactive pupils present Neck Neck: Yes no lymphadenopathy and Yes no JVD Thyroid: Thyroid normal Carotids: no bruits Resp Effort & Inspection: normal respiratory effort and not tachypneic Auscultation: no crackles, no rales, no rhonchi and no wheezes Cardio Rate: regular rate Rhythm: regular rhythm Heart sounds: no murmurs and normal S1 and S2 GI Palpation (GI): Soft to palpation, nontender, no hepatomegaly and no splenomegaly Auscultation: normal bowel sounds Skin General skin exam: no rashes or lesions noted and dry skin Neuro General: oriented to person, oriented to place and oriented to time Cranial nerves: Yes Equal, round and reactive pupils present Speech: No Abnormal speech present Gait exam (Neuro): Normal gait present Motor exam (neuro): no tremor noted Extrem Right upper extremity: full ROM Left upper extremity: full ROM Right lower extremity: full ROM; no edema Left lower extremity: full ROM; no edema Psych Mental Status: mental status grossly normal Speech and movement: Normal speech and movement present Affect: normal affect Attitude: cooperative Thought process: Normal thought process present Coding Level of Care Code Est Pt Level 4 (38891) Diagnoses Graves disease E05.00 Opioid use disorder F11.99 Additional Codes LEANNA-7 Assessment Billing - LEANNA-7 Assessment Tool: LEANNA-7 Assessment 45385 ([id number]) PHQ-9 - 79730 - PHQ-9 Billing: Yes ([id number]) Assessment & Plan Assessment & Plan (1) Graves disease: Code(s): E05.00 - Thyrotoxicosis with diffuse goiter without thyrotoxic crisis or storm Category: Medical Plan: Patient continues on levothyroxine 125 mcg with good effect. Most recent TSH stable. (2) Opioid use disorder: Comment: Sober since 2019 Code(s): F11.99 - Opioid use, unspecified with unspecified opioid-induced disorder Category: Medical Plan: He reports he feels great has been sober now since 2020 Orders: Orders TSH reflex Free T4 Today E05.00 - Thyrotoxicosis with diffuse goiter without thyrotoxic crisis or storm Complete Blood Count no Diff Today Z13.1 - Encounter for screening for diabetes mellitus Vitamin D 25-OH Total Today E55.9 - Vitamin D deficiency, unspecified Comprehensive [place]. Panel Fast Today Z13.1 - Encounter for screening for diabetes mellitus
== END 2024-12-24 14:55 | disposition home or self-care (01) ==
PROVIDERS: PCP Physician Assistant; Visit Provider Physician Assistant
DX: E05.00 Thyrotoxicosis with diffuse goiter without thyrotoxic crisis or storm (principal); F11.99 Opioid use, unspecified with unspecified opioid-induced disorder

== ENCOUNTER → 2024-12-24 14:17 | Outpatient (BNVA) | payer OTHER, SELFPAY | PROVIDERS: PCP Physician Assistant; Visit Provider Physician Assistant | DX: E05.00 Thyrotoxicosis with diffuse goiter without thyrotoxic crisis or storm (principal); F11.99 Opioid use, unspecified with unspecified opioid-induced disorder; Z79.899 Other long term (current) drug therapy | CPT/HCPCS: 96127 ==

== ENCOUNTER 2025-09-21 14:35 | Outpatient (AMB) | payer OTHER, SELFPAY ==
--- NOTE | 2025-09-21 14:56 | MHC.PC.OV ---
Vital Signs 09/21/25 14:57 Height 5 ft 7 in Weight 179 lb 8 oz BMI 28.1 BP 110/70 Blood Pressure Location Lt brachial Position Sitting Pulse 54 Pulse Source Pulse Oximeter Temp 97.3 F Temp Source Temporal Artery Scan Pulse Oximetry (%) 97 Oxygen Delivery Method Room Air Intake Visit Reasons: annual exam Intake Note: Patient is here today for a physical. 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 Patient has a past medical history significant for postoperative hypothyroidism, Graves disease, vitamin-D deficiency, history of opiate use disorder.. Concern--> The patient reports a new issue of decreased hearing in one ear, which has been noticeable over the last few months. The sensation is described as muffled, and it became more apparent when using headphones at work, noting a significant volume disparity between the ears. The patient's father is deaf, with hearing loss that occurred gradually over his life, which is a source of concern for the patient. . Hypothyroidism: Patient has Graves and postoperative hypo thyroidism (thyroidectomy 10/2022). He continues on levothyroxine 125 mcg. He reports he has been feeling much better since stabilizing his thyroid.. He noted some weight gain since last office visit. He attributes this to dietary indiscretion over the the holidays .. Opiate dependence: Has been sober over the last 6 years. Was originally on Suboxone early on in his sobriety. . 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 Vaccine: Up-to-date with tetanus vaccine, COVID vaccine, declines flu vaccine [facility] Medical History Postoperative hypothyroidism Opioid use disorder Depression Asthma Vitamin D deficiency Graves disease Surgical History Hx of thyroidectomy History of surgery on wrist Family History Mother Graves disease HTN (hypertension) Social History (Updated 09/21/25 @ 15:16 by Dean Gamble PA-C) Housing: House Alcohol intake: current Alcohol intake frequency: a few times a week Alcohol type: hard liquor Patient Tobacco Use Status: Former Tobacco user Tobacco use type: Smokeless Tobacco Cigarettes Per Day: 2 e-Cigarette/Vaping Use: Former Use Second Hand Smoke Exposure: Yes Substance Use Type: Marijuana service: No Current occupational status: employed Current occupation: [employer] Current occupational exposures/hazards: No Cognitive needs: No Hearing needs: No Vision needs: No Questionnaire PHQ-9 Over the last 2 weeks, how often have you been bothered by any of the following problems? 1. Little interest or pleasure in doing things: not at all 2. Feeling down, depressed, or hopeless: not at all 3. Trouble falling or staying asleep, or sleeping too much: not at all 4. Feeling tired or having little energy: not at all 5. Poor appetite or overeating: not at all 6. Feeling bad about yourself - or that you are a failure or have let yourself or your family down: not at all 7. Trouble concentrating on things, such as reading the newspaper or watching television: not at all 8. Moving or speaking so slowly that other people could have noticed. Or the opposite - being so fidgety or restless that you have been moving around a lot more than usual: not at all 9. Thoughts that you would be better off or of hurting yourself in some way: not at all Total score: 0 Depression Screening Interpretation: Negative Depression Screening Done: Yes 93166 - PHQ-9 Billing: Patient declined-do not bill Source: Developed by Drs. Waldemar Xiong, Galilea Prakash, Keshawn Ray and colleagues, with an educational caitlin from [email or web address]. Thrive Questionnaire Date Thrive assessed: 12/24/24 I am a: Patient What is your living situation today?: I have a steady place to live Within the past 12 months, did the food you bought not last and you didn't have the money to get more?: Never true Within the past 12 months, did you worry whether your food would run out before you got money to buy more?: Never true Do you have trouble paying for medicines?: No Do you have trouble getting transportation to medical appointments?: No Do you have trouble paying your heating and electricity bill?: No Do you have trouble taking care of your child, family member or friend?: No Do you have trouble with day-to-day activities such as bathing, preparing meals, shopping, managing finances, etc.?: No Are you currently unemployed and looking for a job?: No Are you interested in more education?: I choose not to answer this question Please select the resources that you would like help with: None Currently or been in a relationship where the following occur: No concerns reported THRIVE Score: 0 AUDIT C Alcohol Use Questionnaire (AUDIT-C) 1. How often do you have a drink containing alcohol?: 2-3 times a week Total Score: 3 LEANNA-7 AMB Questionnaire LEANNA-7 Date LEANNA - 7 assessed: 12/24/24 Feeling nervous, anxious, or on edge: 0 = Not at all Not being able to stop or control worryin = Not at all Worrying too much about different things: 0 = Not at all Trouble relaxin = Not at all Being so restless that it is hard to sit still: 0 = Not at all Becoming easily annoyed or irritable: 0 = Not at all Feeling afraid as if something awful might happen: 0 = Not at all Total LEANNA-7 score (0-4 normal; 5-9 mild; 10-14 moderate; 15-21 severe): 0 Source: Developed by Drs. Waldemar Xiong, Galilea Prakash, Keshawn Ray and colleagues, with an educational caitlin from [email or web address]. LEANNA-7 Assessment Billing LEANNA-7 Assessment Tool: LEANNA-7 Assessment 03646 Review of Systems Const Denies body aches, Denies chills, Denies excessive sweating, Denies fatigue, Denies fever(s) and Denies headache(s) Eyes Denies blurry vision ENT Denies dysphagia, Denies vertigo, Denies dizziness, Denies headache(s), Denies hearing loss and Denies tinnitus Card Denies chest pain, Denies chest pain with activity, Denies syncope, Denies irregular heart rhythm and Denies dyspnea Resp Denies chest congestion, Denies cough, Denies hemoptysis, Denies dyspnea and Denies wheezing GI Denies abdominal pain, Denies melena, Denies hematochezia, Denies coffee ground emesis, Denies dysphagia, Denies diarrhea, Denies nausea and Denies vomiting Denies difficulty urinating, Denies dysuria, Denies urinary frequency, Denies urinary hesitancy and Denies urinary urgency Musc Denies arthralgias, Denies limited range of motion, Denies muscle cramps and Denies muscle weakness Skin/Breast Denies rash and Denies skin ulcer Neuro Denies Abnormal speech present, Denies confusion, Denies vertigo, Denies dizziness, Denies syncope, Denies headache(s), Denies memory loss and Denies seizure-like activity Psych Denies anxiety, Denies confusion, Denies depression, Denies memory loss, Denies panic attacks and Denies paranoia Endo Denies excessive sweating, Denies fatigue, Denies flushing, Denies polydipsia and Denies polyuria Aller/Immun Denies wheezing Physical exam (Primary Care) Vital Signs: Last Vital Signs Temp 97.3 F 09/21/25 14:57 Pulse 54 09/21/25 14:57 BP 110/70 09/21/25 14:57 Pulse Ox 97 09/21/25 14:57 Oxygen Delivery Method Room Air 09/21/25 14:57 BMI result Body Mass Index 28.1 Tobacco/Smoking Status: Tobacco use Status Tobacco use date assessed 09/21/25 09/21/25 15:01 Patient Tobacco Use Status Former Tobacco user 09/21/25 15:16 Tobacco use type Smokeless Tobacco 09/21/25 15:16 e-Cigarette/Vaping Use Former Use 09/21/25 15:16 PHQ-9: PHQ-9 Score PHQ-9: Total score 0 09/21/25 15:17 Depression Screening Interpretation: Negative Thrive Assessment: Date of Thrive Assessment Date Thrive assessed 12/24/24 09/21/25 15:01 Currently or been in a relationship where the following occur: No concerns reported Const General: cooperative, comfortable, no acute distress, alert and awake; No confusion Orientation/consciousness: oriented to person, oriented to place, patient oriented x3 and No confusion HENMT Head: Yes normocephalic Ears: external ears normal and TM's normal bilaterally Face and sinus: No sinus tenderness Mouth: Normal oral and palatal mucosa present and tongue normal Teeth and gingiva: dentition normal and gingiva normal Throat: Yes posterior oropharynx normal, Yes tonsils normal and Yes uvula midline Eyes Conjunctivae: conjunctivae normal Sclerae: sclerae normal Pupils: Equal, round and reactive pupils present EOM: EOMs intact bilaterally Direct Ophthalmoscopy: No no photophobia Neck Neck: Yes no lymphadenopathy, No tender and Yes no JVD Thyroid: Thyroid normal Carotids: no bruits Chest Chest palpation & inspection: no tenderness Resp Effort & Inspection: normal respiratory effort, no audible wheezes, not labored and no stridor Auscultation: no crackles, no rales, no rhonchi and no wheezes Cardio Jugular venous distension: no JVD Rate: regular rate, not bradycardic and not tachycardic Rhythm: regular rhythm Bruits: no carotid bruits Peripheral pulses: Peripheral pulses 2+ throughout GI Inspection: Yes normal to inspection, No abdominal wall ecchymosis and No visible herniation Palpation (GI): Soft to palpation, nontender, no guarding, not rigid and No hepatosplenomegaly present Auscultation: normoactive bowel sounds General: Yes no CVA tenderness Back/Spine/Pelvis Back: no CVA tenderness and No back tenderness Cervical Spine: cervical ROM normal Thoracic/Lumbar Spine: thoracic and lumbar spine normal to inspection, straight leg raise negative bilaterally, No thoraco-lumbar ROM limited and No lumbar spinal tenderness Skin Lesions: no lesions Rashes: no rashes Wounds: no wounds Neuro General: oriented to person, oriented to place, patient oriented x3, CN's II-XI intact bilaterally and No confusion Cranial nerves: Yes Equal, round and reactive pupils present and Yes Normal accommodation reflex present Cognition (Neuro): normal cognition Speech: No Abnormal speech present Gait exam (Neuro): Normal gait present Motor exam (neuro): 5/5 motor strength present throughout Extrem Right upper extremity: full ROM; no cyanosis Left upper extremity: full ROM; no cyanosis Right lower extremity: no edema Left lower extremity: no edema Psych Appearance: grossly normal Mental Status: mental status grossly normal Affect: normal affect Attitude: cooperative Thought process: Normal thought process present Coding Level of Care Code Est Pt Prev Care 18-39y(90398) Diagnoses Annual physical exam Z00.00 Sensorineural hearing loss (SNHL) of right ear, unspecified hearing status on contralateral side H90.5 Contralateral hearing status: unspecified Graves disease E05.00 Opioid use disorder F11.99 Additional Codes LEANNA-7 Assessment Billing - LEANNA-7 Assessment Tool: LEANNA-7 Assessment 12488 ([id number]) Assessment & Plan Assessment & Plan (1) Annual physical exam: Code(s): Z00.00 - Encounter for general adult medical examination without abnormal findings Category: Medical Plan: As per HPI (2) Right SNHL: Code(s): H90.5 - Unspecified sensorineural hearing loss Category: Medical Qualifiers: Contralateral hearing status: unspecified Qualified Code(s): H90.5 - Unspecified sensorineural hearing loss Plan: A referral will be placed to audiology for a formal hearing exam to evaluate the patient's complaint of unilateral hearing loss. This is indicated to investigate for potential sensorineural hearing loss, particularly given the family history of deafness. (3) Graves disease: Code(s): E05.00 - Thyrotoxicosis with diffuse goiter without thyrotoxic crisis or storm Category: Medical Plan: Patient continues on levothyroxine 125 mcg with good effect. Most recent TSH stable. (4) Opioid use disorder: Comment: Sober since 2019 Code(s): F11.99 - Opioid use, unspecified with unspecified opioid-induced disorder Category: Medical Plan: He reports he feels great has been sober now since 2019 Orders: Referrals Speech and Hearing Referral H90.5 - Unspecified sensorineural hearing loss Medications: Refilled cholecalciferol (vitamin D3) 50 mcg PO DAILY 30 caps 6RF 30 days E55.9 - Vitamin D deficiency, unspecified
[2025-09-21 14:57] VITALS: BP 110/70; PULSE 54; TEMP 36.3; O2SAT 97; BMI 28.1
== END 2025-09-21 15:29 | disposition home or self-care (01) ==
LOC: HO.HMCH 14:36
PROVIDERS: PCP Physician Assistant; Visit Provider Physician Assistant
DX: Z00.00 Encounter for general adult medical examination without abnormal findings (principal); H90.5 Unspecified sensorineural hearing loss; E05.00 Thyrotoxicosis with diffuse goiter without thyrotoxic crisis or storm; F11.99 Opioid use, unspecified with unspecified opioid-induced disorder

== ENCOUNTER → 2025-09-21 14:35 | Outpatient (BNVA) | payer OTHER, SELFPAY | PROVIDERS: PCP Physician Assistant; Visit Provider Physician Assistant | DX: Z00.00 Encounter for general adult medical examination without abnormal findings (principal); E03.9 Hypothyroidism, unspecified; F11.21 Opioid dependence, in remission; H90.5 Unspecified sensorineural hearing loss; E05.00 Thyrotoxicosis with diffuse goiter without thyrotoxic crisis or storm; E55.9 Vitamin D deficiency, unspecified | CPT/HCPCS: 96127 ==